=== PATIENT | female | born 1955 | race American Indian/Alaskan Native ===

== ENCOUNTER → 2024-05-09 | Outpatient (CLI) | payer MEDICARE, OTHER, SELFPAY ==
[2024-05-19 07:00] LABS: Estradiol, Ultrasensitive* 10 pg/mL; Testosterone,Total* 161 ng/dL (2-45)
== END | disposition home or self-care (01) ==
PROVIDERS: PCP Family Medicine; Referring Provider Nurse Practitioner; Visit Provider Nurse Practitioner
DX: N95.1 Menopausal and female climacteric states (principal); M85.80 Other specified disorders of bone density and structure, unspecified site; M81.8 Other osteoporosis without current pathological fracture; R53.83 Other fatigue
CPT/HCPCS: 36415; 82670; 84403

== ENCOUNTER → 2024-07-29 | Outpatient (CLI) | payer MEDICARE, OTHER, SELFPAY ==
[2024-07-29 11:25] LABS: Basophils # (Auto) 0.1 Thou/mm3 (0.0-0.2); Basophils % (Auto) 1 % (0-2.5); Eosinophils # (Auto) 0.1 Thou/mm3 (0.0-0.5); Eosinophils % (Auto) 3 % (0-10); Immature Granulocytes % (Auto) 0 % (0-0); Immature Granulocytes Auto 0.01 Thou/mm3 (0.00-0.00); Lymphocytes # (Auto) 0.9 Thou/mm3 (1.0-4.8); Lymphocytes % (Auto) 19 % (10-50); Mean Corpuscular HGB Conc 33.3 g/dl (31.0-37.0); Mean Corpuscular Volume 90 fL (80-100); Monocytes # (Auto) 0.3 Thou/mm3 (0.0-0.8); Monocytes % (Auto) 6 % (0-12); Neutrophils # (Auto) 3.4 Thou/mm3 (1.8-7.7); Neutrophils % (Auto) 71 % (37-80); Nucleated Red Blood Cell % 0 /100 WBC (0); Platelet Count 221 Thou/mm3 (140-440); RDW Standard Deviation 41.9 fL (36.4-46.3); Red Blood Count 4.33 Miln/mm3 (4.00-5.20); White Blood Count 4.8 Thou/mm3 (3.6-11.0)
[2024-07-29 11:52] LABS: Sed Rate (ESR) 2 mm/hr (0-30)
[2024-07-29 13:45] LABS: Alanine Aminotransferase 26 U/L (10-49); Albumin, Serum 4.2 gm/dL (3.4-4.8); Albumin/Globulin Ratio 1.8 (1.2-2.2); Anion Gap 9 (7-16); Aspartate Amino Transferase 24 U/L (0-34); BUN/Creatinine Ratio 18 Ratio (12-20); Bilirubin,Total 0.4 mg/dL (0.3-1.2); Blood Urea Nitrogen 14 mg/dL (9-23); C-Reactive Protein < 0.4 mg/dL (0.0-0.9); Calcium 9.4 mg/dL (8.3-10.6); Calcium (Corrected) 9.4 mg/dL (8.5-10.1); Chloride 105 mMol/L (98-107); Creatinine (Component) 0.8 mg/dL (0.6-1.3); Globulin 2.3 gm/dL (2.3-3.5); Glucose 112 mg/dL (74-106); Osmolality,Calculated 284 (275-295); Sodium 142 mMol/L (136-145); Total Protein 6.5 gm/dL (5.7-8.2); eGFR > 60 See Note
[2024-07-29 14:29] LABS: Alkaline Phosphatase 56 U/L (46-116)
== END | disposition home or self-care (01) ==
LOC: COPL 10:08
PROVIDERS: PCP Family Medicine; Referring Provider Internal Medicine Rheumatology; Visit Provider Internal Medicine Rheumatology
DX: D86.9 Sarcoidosis, unspecified (principal)
CPT/HCPCS: 36415; 80053; 85025; 85652; 86140

== ENCOUNTER → 2024-08-12 | Outpatient (CLI) | payer MEDICARE, OTHER, SELFPAY ==
[2024-08-18 07:24] LABS: Estradiol, Ultrasensitive* 10 pg/mL; Testosterone,Total* 179 ng/dL (2-45)
== END | disposition home or self-care (01) ==
LOC: COPL 08:29
PROVIDERS: PCP Family Medicine; Referring Provider Nurse Practitioner; Visit Provider Nurse Practitioner
DX: N95.1 Menopausal and female climacteric states (principal); M85.80 Other specified disorders of bone density and structure, unspecified site; M81.8 Other osteoporosis without current pathological fracture; R53.83 Other fatigue
CPT/HCPCS: 36415; 82670; 84403

== ENCOUNTER → 2024-11-17 | Outpatient (CLI) | payer MEDICARE, OTHER, SELFPAY ==
[2024-11-26 06:46] LABS: Estradiol, Ultrasensitive* 6 pg/mL; Testosterone,Total* 168 ng/dL (2-45)
== END | disposition home or self-care (01) ==
LOC: COPL 09:37
PROVIDERS: PCP Family Medicine; Referring Provider Nurse Practitioner; Visit Provider Nurse Practitioner
DX: N95.1 Menopausal and female climacteric states (principal); M85.80 Other specified disorders of bone density and structure, unspecified site; M81.8 Other osteoporosis without current pathological fracture; R53.83 Other fatigue
CPT/HCPCS: 36415; 82670; 84403

== ENCOUNTER → 2025-02-25 | Outpatient (CLI) | payer MEDICARE, OTHER, SELFPAY ==
[2025-03-17 06:47] LABS: Estradiol, Ultrasensitive* 6 pg/mL; Testosterone,Total* 170 ng/dL (2-45)
== END | disposition home or self-care (01) ==
LOC: COPL 10:54
PROVIDERS: PCP Family Medicine; Referring Provider Nurse Practitioner; Visit Provider Nurse Practitioner
DX: N95.1 Menopausal and female climacteric states (principal); M85.80 Other specified disorders of bone density and structure, unspecified site; M81.8 Other osteoporosis without current pathological fracture; R53.83 Other fatigue
CPT/HCPCS: 36415; 82670; 84403